=== PATIENT | female | born 1945 | race Caucasian/White ===

== ENCOUNTER → 2016-04-26 17:04 | Outpatient (CLI) | payer MEDICARE, OTHER | END | disposition home or self-care (01) | LOC: D.MAMMO 09:45 | DX: Z12.31 Encounter for screening mammogram for malignant neoplasm of breast (principal) ==

== ENCOUNTER → 2017-05-02 20:01 | Outpatient (CLI) | payer MEDICARE, OTHER | END | disposition home or self-care (01) | LOC: D.MAMMO 08:15 | DX: Z12.31 Encounter for screening mammogram for malignant neoplasm of breast (principal) ==

== ENCOUNTER → 2017-11-08 12:55 | Outpatient (CLI) | payer MEDICARE, OTHER | END | disposition home or self-care (01) | LOC: D.US 12:55 | DX: R22.2 Localized swelling, mass and lump, trunk (principal) ==

== ENCOUNTER → 2018-05-04 08:00 | Outpatient (CLI) | payer MEDICARE, OTHER | END | disposition home or self-care (01) | LOC: D.MAMMO 08:00 | DX: Z12.31 Encounter for screening mammogram for malignant neoplasm of breast (principal) ==

== ENCOUNTER → 2018-05-30 17:12 | Outpatient (CLI) | payer MEDICARE, OTHER | END | disposition home or self-care (01) | LOC: D.MAMMO 15:00 | DX: R92.8 Other abnormal and inconclusive findings on diagnostic imaging of breast (principal) ==

== ENCOUNTER 2018-07-23 09:00 | Day surgery (SDC) | payer MEDICARE, OTHER ==
[2018-07-20 13:31] LABS: HEMATOCRIT 37.5 % (36.0-48.0); HEMOGLOBIN 13.3 g/dL (12-16); LYMPHOCYTES 28.1 % (15-50); MCH 33.8 pg (26.0-34.0); MCHC 35.5 g/dL (31.0-37.0); MCV 95.4 fL (80.0-100.0); MEAN PLATELET VOLUME 9.3 fL (7.4-10.4); NEUTROPHILS 61.1 % (40-80); PLATELET COUNT 181 10x3/uL (130-400); RBC 3.93 10x6/uL (4.00-5.40); RDW 13.2 % (11.5-14.5); WBC 3.2 10x3/uL (4.8-10.8)
[~2018-07-23 09:00] MED LIST: CLIMARA 0.0.05 MG/PA TRANSDERM; LEVOTHYROXINE150 MCG PO; PEPCID AC20 MG PO; PROMETRIUM100 MG PO; VITAMIN D10000 UNI1 PO; ZOVIRAX400 MG PO
[2018-07-23 10:02] VITALS: BP 137/65; BMI 24.4
--- NOTE | 2018-07-26 19:19 | OP ---
PATIENT NAME: NIKO SANTANA MEDICAL RECORD: [id number] :45 LOCATION:[facility] ADMISSION DATE: SURGEON: FUENTES NGUYEN MD DATE OF OPERATION: 07/23/2018 PREOPERATIVE DIAGNOSIS: Postmenopausal bleeding. POSTOPERATIVE DIAGNOSIS: 1. Postmenopausal bleeding. 2. Uterine atrophy. PROCEDURE: Hysteroscopy with dilation and curettage. SURGEON: Fuentes Nguyen MD TUCK POINTER HELPER: Song Gomez. ANESTHESIOLOGIST: Dr. Oviedo. ANESTHETIC: General. FINDINGS: Cervix and vaginal mucosa unremarkable. At the time of hysteroscopy, thin lining noted. No masses. Scant tissue returned at the time of D&C. SPECIMEN REMOVED: Uterine curettings. SPECIMEN DISPOSITION: Pathology. ESTIMATED BLOOD LOSS: Minimal. FLUIDS: 600 cc lactated Ringer's. URINE OUTPUT: Quantity sufficient cath prior to this procedure. COMPLICATIONS: None. DRAINS: None. INDICATIONS: The patient is a 72-year-old female who continues to take hormone replacement therapy with vaginal bleeding. The patient had an increased endometrial stripe on ultrasound and was consented for dilation and curettage with hysteroscopy. DESCRIPTION OF PROCEDURE: After informed consent was assured, the patient was taken to the operating room where anesthetic was obtained. The patient was now prepped and draped in the usual sterile fashion. A speculum was introduced into the vagina. The cervix grasped and the cervix dilated. A hysteroscope was introduced and the cervical os and ostia are visualized. The uterine cavity was visualized in its entirety without evidence of mass. Hysteroscopy was now discontinued and a cervix dilated to accommodate a #2 curette. Curette was passed gently to the fundus and pressure applied to the uterine wall as it is withdrawn. Good cry obtained throughout with tissue returned. The specimen was sent to the pathologist. Single tooth tenaculum that was used to steady the cervix during this case is removed and a ring forceps placed on the puncture sites. Sponge, lap, and needle counts correct times 2. Ring forceps were OPERATIVE REPORT [id number] NIKO SANTANA removed prior to the patient being transferred from the operative table to the [facility]. TRANSINT:[id number] Voice Confirmation ID: [id number] DOCUMENT ID: [id number] FUENTES NGUYEN MD at 4304 CC: [id number] DICTATION DATE: 07/23/18 7941 BLOW MOLDER: 07/23/[address] [facility] 07/23/18 [place] [id number] [place] [address]
== END 2018-07-23 15:15 | disposition home or self-care (01) ==
LOC: D.OPS 09:00
PROVIDERS: Obstetrics & Gynecology
DX: N95.0 Postmenopausal bleeding (principal); N71.1 Chronic inflammatory disease of uterus; Z01.812 Encounter for preprocedural laboratory examination

== ENCOUNTER 2018-11-28 19:00 | Outpatient (CLI) | payer MEDICARE, OTHER | END 2018-11-28 23:59 | disposition home or self-care (01) | LOC: D.MAMMO 19:00 | PROVIDERS: ATTEND Obstetrics & Gynecology | DX: R92.8 Other abnormal and inconclusive findings on diagnostic imaging of breast (principal) ==

== ENCOUNTER → 2018-12-05 08:23 | Outpatient (CLI) | payer MEDICARE, OTHER | END | disposition home or self-care (01) | LOC: D.US 08:23 | PROVIDERS: ATTEND Obstetrics & Gynecology | DX: N60.01 Solitary cyst of right breast (principal); R92.8 Other abnormal and inconclusive findings on diagnostic imaging of breast ==

== ENCOUNTER 2019-01-14 05:05 | Day surgery (SDC) | payer MEDICARE, OTHER ==
[2019-01-11 10:59] LABS: EOSINOPHILS 2.3 % (0-7); HEMATOCRIT 41.5 % (36.0-48.0); LYMPHOCYTES 27.8 % (15-50); MCH 33.3 pg (26.0-34.0); MCHC 33.7 g/dL (31.0-37.0); MCV 98.8 fL (80.0-100.0); MEAN PLATELET VOLUME 9.7 fL (7.4-10.4); MONOCYTES 8.7 % (2-11); NEUTROPHILS 60.2 % (40-80); WBC 3.1 10x3/uL (4.8-10.8)
[2019-01-11 11:04] LABS: PLATELET COUNT 224 10x3/uL (130-400)
[2019-01-11 11:06] LABS: CALC OSMOLALITY 281 mosm/kg (275-300); CALCIUM 9.5 mg/dL (8.5-10.1); CARBON DIOXIDE 30.9 mmol/L (21.0-32.0); CHLORIDE - SERUM 104 mmol/L (98-107); CREATININE - SERUM 0.6 mg/dL (0.6-1.3); GLUCOSE 96 mg/dL (74-106); POTASSIUM - SERUM 4.2 mmol/L (3.5-5.1); SODIUM 142 mmol/L (136-145); UREA NITROGEN 9 mg/dL (7-18); eGFR NON AFRICAN AMERICAN > 90 mL/min (90-120)
[~2019-01-14] VITALS: Ht 157.5 cm; Wt 60.0 kg
[2019-01-14] VITALS (10 sets, daily range): BP systolic 103–139; BP diastolic 59–82; Ht 157.5 cm; Wt 60.0 kg
--- NOTE | 2019-01-14 09:45 | NUR ---
RCV`D PT FROM RECOVERY ROOM VIA HOSPITAL STAFF AND BED. PT IS STILL GROGGY BUT ALERT AND ORIENTED. IS AT THE BEDSIDE. IV LOCATED TO LEFT HAND. CURRENTLY RCVING 2L VIA NC. V/S ARE STABLE. NO S/S OF DISTRESS AT THIS TIME, DENIES NEEDS, WILL CONT TO MONITOR.
--- NOTE | 2019-01-14 19:24 | NUR ---
PATIENT RESTINGI IN BED AND DENIES NEEDS AT THIS TIME. BED IN LOWEST POSITION AND CALL LIGHT WITHIN REACH. VSS. ENCOURAGED THE PATIENT TO CALL IF SHE HAS NEEDS. WILL CONTINUE TO MONITOR.
[2019-01-14] MEDS ORDERED: RESTORIL15 MG PO (20:35)
--- NOTE | 2019-01-14 20:40 | NUR ---
PAGED DR. FAITH IN REGARDS TO PATIENT'S REQUEST FOR PEPCID
--- NOTE | 2019-01-14 20:42 | NUR ---
SPOKE WITH DR. FAITH IN REGARDS TO PATIENT'S REQUEST. DR. FAITH ORDERED PATIENT'S HOME DOSE OF PEPCID, 20MG BID.
--- NOTE | 2019-01-14 20:43 | NUR ---
PAGED DR. FAITH IN REGARDS TO PATIENT'S REQUEST FOR PEPCID
--- NOTE | 2019-01-14 22:09 | NUR ---
PATIENT AMBULATED AROUND UNIT
[2019-01-15 00:02] VITALS: BP 100/50
[2019-01-15 04:15] VITALS: BP 101/52
[2019-01-15 06:13] LABS: HEMATOCRIT 32.6 % (36.0-48.0); HEMOGLOBIN 11.2 g/dL (12-16); MCH 33.6 pg (26.0-34.0); MCHC 34.4 g/dL (31.0-37.0); MCV 97.9 fL (80.0-100.0); MEAN PLATELET VOLUME 9.9 fL (7.4-10.4); RBC 3.33 10x6/uL (4.00-5.40); RDW 12.7 % (11.5-14.5); WBC 4.7 10x3/uL (4.8-10.8)
--- NOTE | 2019-01-15 07:16 | NUR ---
PT RESTING IN BED WITH EYES CLOSED, EASILY AROUSED TO SPEECH. ALERT AND ORIENTED WITH NO S/S OF DISTRESS AT THIS TIME. MARVIN CATH PRESENT PUTTING OUT CLEAR YELLOW URINE. IV LOCATED TO LEFT HAND WITH LR RUNNING AND MORPHINE UI PROGRAMMER PRESENT. DENIES NEEDS AT THIS TIME, WILL CONT TO MONITOR.
--- NOTE | 2019-01-15 07:42 | OP ---
PATIENT NAME: NIKO SANTANA MEDICAL RECORD: [id number] :45 LOCATION:D. D.1204 ADMISSION DATE:01/14/19 SURGEON: JOSÉ MIGUEL NGUYEN MD DATE OF OPERATION: 01/14/2019 PREOPERATIVE DIAGNOSES: 1. Postmenopausal syndrome. 2. Postmenopausal bleeding. 3. Endometrial with atypical cells. POSTOPERATIVE DIAGNOSES: 1. Postmenopausal syndrome. 2. Postmenopausal bleeding. 3. Endometrial with atypical cells. 4. Pelvic adhesions. PROCEDURE: 1. Diagnostic laparoscopy. 2. Lysis of adhesions. 3. Laparoscopic-assisted vaginal hysterectomy. 4. Bilateral salpingo-oophorectomy. SURGEON: José Miguel Nguyen MD SOLO MUSICIAN: Dr. Reilly. CONDITIONING COACH: Gunnar Gomez. ANESTHESIOLOGIST: Dr. Oviedo ANESTHETIC: General. FINDINGS: Uterus has first degree prolapse. The vaginal vault was unremarkable. At the time of laparoscopy, adhesion of the left adnexa to the sidewall was encountered. The ovaries and tubes were otherwise unremarkable. What was visualized of the abdominal anatomy is unremarkable. SPECIMENS REMOVED: 1. Uterus with cervix. 2. Bilateral tubes. 3. Bilateral ovaries. ESTIMATED BLOOD LOSS: Less than or equal to 100 cc. FLUIDS: 1300 cc lactated Ringer's. URINE OUTPUT: 150 cc of clear urine. COMPLICATIONS: None. DRAINS: Goddard to gravity. INDICATIONS: The patient is a 73-year-old female who has been on cyclic hormone replacement therapy for several years. The patient developed postmenopausal bleeding and endometrial sampling was performed. The sampling showed OPERATIVE REPORT [id number] NIKO SANTANA proliferative endometrium with atypical features. The patient has severe menopausal symptoms and wishes to continue on hormones. The patient is requesting definitive therapy. DESCRIPTION OF PROCEDURE: After informed consent was assured, the patient was taken to the operating room where anesthetic was obtained. The patient was now prepped and draped in the usual sterile fashion [facility] After Goddard catheter started, attention was directed to the abdomen where an incision was made at the umbilicus to accommodate a 5-mm trocar. This was inserted without difficulty. Pneumoperitoneum was developed and the patient was placed in Trendelenburg position. The left and right lower quadrant ports were now placed. After placement of the ports, the right adnexa is elevated with a grasper from the left. Thunderbeat coagulation cutter was used to separate the ovary and tube from its attachments to the infundibulopelvic ligament. This sequence of compression, desiccation, and dissection continued underneath the ovary and tube across the round ligament and the anterior leaf of the broad ligament was now opened. The anterior leaf was developed all the way to the midline. The posterior leaf was now opened and the vessels on the right side skeletonized, compressed, coagulated. Attention was now directed to the left side. The adhesion in left adnexa was elevated with grasper from the right. Again, using the Thunderbeat coagulation cutter, the adhesions were taken down and then the infundibulopelvic ligament identified compressed, coagulated, and . Dissection was carried out underneath the left tube and ovary and across the left round ligament. The anterior leaf of the broad ligament was opened and the bladder flap fully developed. The posterior leaf was dissected free of the vascular bundle of the left side. The vascular bundle of the side is now compressed and coagulated. The legs were positioned for the vaginal portion of this case as pneumoperitoneum was released and the light placed on standby. Weighted speculum was introduced in the vagina and the cervix grasped with Quezada tenaculums. The cervix is elevated and the posterior cul-de-sac entered sharply. Anteriorly, Bovie cautery was used to mobilize the vaginal mucosa at the bladder fold. Once the bladder was mobilized, the uterosacral ligament on both right and left side, grasped with Shante clamps. These pedicles developed sharply and Shante stitches applied. These were tagged to be used later in the procedure. Attention was directed back anteriorly where the anterior pouch is now entered. A [place] retractor was placed here. The remaining portion of the cardinal ligament was serially clamped, cut, and tied until the uterus was removed. At both pedicles of right and left side, a tie on a pass and a [id number]-[id number] stitch was used to obtain hemostasis. The cuff was now closed in anterior to posterior fashion. Anteriorly, care was taken to incorporate the peritoneum of the bladder at the apex of the vaginal close. This close this continued until the level of the uterosacral ligaments reached and they are plicated in the midline. A separate stitch was placed through the posterior cuff through the uterosacral complex and back out of the cuff. The running stitch now continues to close the mucosa. The aforementioned stitch goes from posterior cuff through uterosacral ligament. It is now tied securing the cuff to ligament support. The pneumoperitoneum is now reestablished and the patient is again placed in Trendelenburg position. The patient has the pelvis irrigated and irrigant removed. Adequate hemostasis is visualized across the operative field. The uterosacral ligaments were well approximated in midline. Sponge, lap, needle counts were correct times 2. The pneumoperitoneum was released and the skin was closed. Dermabond was applied. The patient was taken to recovery area in stable condition. TRANSINT:[id number] Voice Confirmation ID: [id number] DOCUMENT ID: [id number] OPERATIVE REPORT [id number] NIKO SANTANA,JOSÉ MIGUEL Kim MD at 0742 CC: [id number] DICTATION DATE: 01/14/19 0844 DE ICER: 01/14/19 1034 ADM IN [facility] [address] [place] [address]
[2019-01-15 08:00] VITALS: BP 96/54
--- NOTE | 2019-01-15 08:00 | NUR ---
MARVIN CATH REMOVED, IV FLUIDS AND UPKEEP MECHANIC DC`D, LEFT HAND IV SALINE LOCKED.
[2019-01-15 11:52] VITALS: BP 102/59
--- NOTE | 2019-01-15 12:01 | NUR ---
PT SITTING UP IN BED ALERT AND ORIENTED WITH AT THE BEDSIDE. REPORTS NO ISSUES AFTER EATING A REGULAR DIET BREAKFAST AND HAS BEEN ABLE TO VOID X2 WITH NO ISSUES. WILL CONT TO MONITOR.
--- NOTE | 2019-01-15 13:04 | NUR ---
WRITTEN SCRIPTS FOR TORADOL 10 MG #30 WITH NO REFILLS AND PEROCET 5 MG #25 WITH NO REFILLS GIVEN TO PATIENT.
[2019-01-15] MEDS ORDERED: TORADOL10 MG PO (13:06)
[2019-01-15] MEDS ORDERED: PERCOCET 5-3251 TAB PO (13:07)
--- NOTE | 2019-01-15 13:51 | NUR ---
DC`D PT HOME WITH .
== END 2019-01-15 13:52 | disposition home or self-care (01) ==
LOC: OBSVTIME → D.OPS 05:05 → D.PAN 07:00 → D.OPS 07:00 → D.PAN 07:30 → D.M3 09:29 → D.OPS 09:45 → D.M3 09:45 → OBSVTIME 09:45 → D.M3 01-15 13:52 → D.OPS 01-15 13:52 → D.M3 01-15 13:52
PROVIDERS: ATTEND Obstetrics & Gynecology
DX: N95.8 Other specified menopausal and perimenopausal disorders (principal); N95.0 Postmenopausal bleeding; N73.6 Female pelvic peritoneal adhesions (postinfective); R87.619 Unspecified abnormal cytological findings in specimens from cervix uteri; N81.2 Incomplete uterovaginal prolapse

== ENCOUNTER 2019-01-18 09:37 | Outpatient (CLI) | payer MEDICARE, OTHER ==
[~2019-01-18] VITALS: Ht 157.5 cm; Wt 60.9 kg
[~2019-01-18 09:37] MED LIST changes: +PERCOCET 5-3251 TAB PO; +RESTORIL15 MG PO; +TORADOL10 MG PO
[2019-01-18 10:25] VITALS: BP 117/73; Ht 157.5 cm; Wt 60.9 kg
--- NOTE | 2019-01-18 11:40 | NUR ---
1025 PRIOR TO STARTING ENEMA PROCESS, A RECTAL EXAM WAS PERFORMED. SOLID STOOL PRESENT IN RECTAL VAULT. STOOL WAS SOFT AND UNABLE TO EVACUATE. 1030 ENEMA PROCESS STARTED. PT NOT ABLE TO HOLD ALL OF 200CC OF LACTULOSE SOLUTION AND LEAKING ON PADS. PT EVACUATED SMALL AMOUNTS OF STOOL WHILE SITTING ON TOILET. 1038 RE-EXAMINED PT. LARGE AMOUNT OF STOOL IN RECTAL VAULT. DIGITALLY ABLE TO REMOVE SMALL PIECE OF FORMED STOOL. 200 CC OF MORE LACTULOSE SOLUTION GIVEN PER RECTUM. PT ABLE TO HOLD WITH MIMIMAL LEAKAGE. 1050 PT UP TO BR. PT EVACUATED A LARGE AMOUNT OF STOOL. 1055 PT STATES SHE FEELS MUCH BETTER. PT RE-EXAMINED. NO STOOL IN RECTAL VAULT PER DIGITAL EXAM. PT WANTS MORE OF SOLUTION TO TRY TO REMOVE ANY STOOL THAT MAY STILL BE HIGHER. 1105 PT HELD 400CC LACTULOSE SOLUTION FOR 6-7 MINUTES. PT STATES SHE PASSED A LOT OF LIQUID AND SOME PARTICLES OF DARK STOOL. 1135 PT READY FOR DISCHARGE AND SHE FEELS COMFORTABLE TO LEAVE. EDUCATION MATERIAL FOR CONSTIPATION AND IMPACTION GIVEN TO PATIENT.
== END 2019-01-18 11:34 | disposition home or self-care (01) ==
LOC: D.OPS 09:37
PROVIDERS: ATTEND Obstetrics & Gynecology
DX: K59.00 Constipation, unspecified (principal)

== ENCOUNTER 2019-04-24 09:00 | Outpatient (CLI) | payer MEDICARE, OTHER ==
[2019-01-18 10:25] VITALS: BMI 24.5
== END 2019-04-24 10:00 | disposition home or self-care (01) ==
LOC: D.MAMMO 09:00
PROVIDERS: ATTEND Obstetrics & Gynecology
DX: Z12.31 Encounter for screening mammogram for malignant neoplasm of breast (principal)

== ENCOUNTER → 2019-12-02 08:30 | Outpatient (CLI) | payer MEDICARE, OTHER ==
[2019-01-18 10:25] VITALS: BMI 24.5
== END | disposition home or self-care (01) ==
LOC: D.MRI 08:30
PROVIDERS: ATTEND Family Medicine
DX: M25.512 Pain in left shoulder (principal)

== ENCOUNTER 2019-12-18 13:00 | Outpatient (CLI) | payer MEDICARE, OTHER ==
[2019-01-18 10:25] VITALS: BMI 24.5
== END 2019-12-18 23:59 | disposition home or self-care (01) ==
LOC: D.MAMMO 13:00
PROVIDERS: ATTEND Family Medicine
DX: N63.22 Unspecified lump in the left breast, upper inner quadrant (principal)

== ENCOUNTER 2020-06-17 16:56 | Outpatient (CLI) | payer MEDICARE, OTHER ==
[2019-01-18 10:25] VITALS: BMI 24.5
== END 2020-06-17 23:59 | disposition home or self-care (01) ==
LOC: D.MAMMO 16:56
PROVIDERS: ATTEND Family Medicine
DX: R92.8 Other abnormal and inconclusive findings on diagnostic imaging of breast (principal)